=== PATIENT | female | born 1970 | race Caucasian/White ===

== ENCOUNTER 2017-02-21 19:35 | Emergency (ER) | payer SELFPAY ==
[2017-02-21 20:26] LABS: BASOPHILS 0.5 % (0-2); EOSINOPHILS 2.9 % (0-7); HEMATOCRIT 40.5 % (36.0-48.0); HEMOGLOBIN 13.5 g/dL (12-16); IMMATURE GRANULOCYTES 0.6 % (0-5); LYMPHOCYTES 29.2 % (15-50); MCH 31.4 pg (26.0-34.0); MCHC 33.3 g/dL (31.0-37.0); MCV 94.2 fL (80.0-100.0); MEAN PLATELET VOLUME 9.7 fL (7.4-10.4); MONOCYTES 9.7 % (2-11); NEUTROPHILS 57.1 % (40-80); PLATELET COUNT 225 10x3/uL (130-400); RDW 14.2 % (11.5-14.5); WBC 10.8 10x3/uL (4.8-10.8)
[2017-02-21 20:54] LABS: ALBUMIN 3.7 g/dL (3.4-5.0); ALKALINE PHOSPHATASE 165 U/L (46-116); ALT (SGPT) 19 U/L (10-68); BILIRUBIN - TOTAL 0.29 mg/dL (0.2-1.3); CALC OSMOLALITY 280 mosm/kg (275-300); CALCIUM 8.9 mg/dL (8.5-10.1); CARBON DIOXIDE 27.3 mmol/L (21.0-32.0); CHLORIDE - SERUM 104 mmol/L (98-107); CREATININE - SERUM 0.8 mg/dL (0.6-1.3); GLUCOSE 112 mg/dL (74-106); PROTEIN - SERUM 7.4 g/dL (6.4-8.2); SODIUM 141 mmol/L (136-145); UREA NITROGEN 11 mg/dL (7-18); eGFR NON AFRICAN AMERICAN 82 mL/min (90-120)
[2017-02-21 21:04] LABS: CKMB 0.4 U/L (0.0-3.6); CREATINE KINASE 90 UL (21-215)
[2017-02-21 21:07] LABS: TROPONIN-I < 0.017 ng/mL (0.000-0.060)
== END 2017-02-21 23:13 | disposition home or self-care (01) ==
LOC: D.ER 19:35
PROVIDERS: Family Medicine
DX: M79.1 Myalgia (principal); F17.200 Nicotine dependence, unspecified, uncomplicated

== ENCOUNTER → 2017-06-27 10:19 | Outpatient (CLI) | payer BC | END | disposition home or self-care (01) | LOC: D.MRI 10:19 | DX: M54.16 Radiculopathy, lumbar region (principal) ==

== ENCOUNTER → 2017-10-30 16:40 | Outpatient (CLI) | payer BC | END | disposition home or self-care (01) | LOC: D.MAMMO 16:15 | DX: Z12.31 Encounter for screening mammogram for malignant neoplasm of breast (principal) ==

== ENCOUNTER 2017-11-07 08:00 | Outpatient (CLI) | payer BC | END 2017-11-07 09:00 | disposition home or self-care (01) | LOC: D.MAMMO 08:00 | DX: R92.8 Other abnormal and inconclusive findings on diagnostic imaging of breast (principal) ==

== ENCOUNTER 2017-12-18 19:46 | Emergency (ER) | payer BC ==
[~2017-12-18] VITALS: Ht 167.6 cm; Wt 72.7 kg
[2017-12-18 19:57] VITALS: Ht 167.6 cm; Wt 72.7 kg
[2017-12-18] MEDS ORDERED: ZANAFLEX4 MG (19:59)
[2017-12-18] MEDS ORDERED: ULTRAM50 MG PO (19:59)
[2017-12-18] MEDS ORDERED: DESERYL100 MG (19:59)
[2017-12-18] MEDS ORDERED: ROBAXIN500 MG (19:59)
[2017-12-18] MEDS ORDERED: HYDROCODON-ACE1 EAC7 PO ×2 (23:07→23:12)
[2017-12-18] MEDS ORDERED: PHENERGAN25 M1 PO ×2 (23:07→23:12)
[2017-12-18] MEDS ORDERED: FELDENE 10 MG C10 MG PO ×2 (23:07→23:12)
[2017-12-19 00:42] VITALS: BP 147/85
== END 2017-12-18 23:30 | disposition home or self-care (01) ==
LOC: D.ER 19:46
DX: S46.001A Unspecified injury of muscle(s) and tendon(s) of the rotator cuff of right shoulder, initial encounter (principal); X58.XXXA Exposure to other specified factors, initial encounter; Y93.89 Activity, other specified; Y92.89 Other specified places as the place of occurrence of the external cause; F17.200 Nicotine dependence, unspecified, uncomplicated

== ENCOUNTER 2020-01-01 17:21 | Emergency (ER) | payer OTHER ==
[~2020-01-01 17:21] MED LIST: DESERYL100 MG; FELDENE 10 MG C10 MG PO; HYDROCODON-ACE1 EAC7 PO; PHENERGAN25 M1 PO; ROBAXIN500 MG; ULTRAM50 MG PO; ZANAFLEX4 MG
[2020-01-01 17:38] VITALS: BP 119/75; Ht 167.6 cm
[2020-01-01] MEDS ORDERED: CYCLOBENZAPRINE10 MG PO (19:04)
== END 2020-01-01 21:29 | disposition home or self-care (01) ==
LOC: D.ER 17:21
DX: M54.2 Cervicalgia (principal); M25.511 Pain in right shoulder; V89.2XXA Person injured in unspecified motor-vehicle accident, traffic, initial encounter; Y93.9 Activity, unspecified; Y92.9 Unspecified place or not applicable